=== PATIENT | male | born 2000 | race Caucasian/White ===

== ENCOUNTER 2020-08-14 18:55 | Emergency (ER) | payer OTHER ==
[~2020-08-14] VITALS: Ht 180.3 cm; Wt 73.9 kg
[2020-08-14] MEDS ORDERED: FOCALIN10 MG PO (19:07)
[2020-08-14] MEDS ORDERED: SERTRALINE HCL100 MG PO (19:08)
[2020-08-14] MEDS ORDERED: ONZETRA XSAIL11 MG PO (19:08)
[2020-08-14 19:29] LABS: ABSOLUTE EOSINOPHILS 0.2 thou/uL (0.0-0.7); ABSOLUTE LYMPHOCYTES 2.2 thou/uL (0.8-5.3); ABSOLUTE MONOCYTES 0.5 thou/uL (0.0-1.2); ABSOLUTE NEUTROPHILS 4.6 thou/uL (1.6-8.1); BASOPHILS 0.6 %; EOSINOPHILS 2.5 %; HEMATOCRIT 44.7 % (42.0-52.0); HEMOGLOBIN 15.5 gm/dL (14.0-18.0); LYMPHOCYTES 29.3 %; MCH 29.5 pg (26.0-34.0); MCHC 34.7 g/dL (28.0-37.0); MCV 85.2 fL (80.0-100.0); MONOCYTES 6.1 %; MPV 8.1 fl. (7.2-11.1); NUCLEATED RBCS 0 /100WBC; PLATELET COUNT* 198 thou/uL (150-400); POLYS 61.5 %; RBC 5.25 mil/uL (4.50-6.00); RDW-CV 12.8 % (10.5-14.5); WBC 7.5 thou/uL (4.0-11.0)
[2020-08-14 19:34] LABS: CALCIUM 9.4 mg/dL (8.5-10.1); CREATININE 0.8 mg/dL (0.6-1.3); POTASSIUM 3.5 mmol/L (3.5-5.1)
[2020-08-14 19:38] LABS: ALBUMIN 4.8 g/dL (3.4-5.0); TOTAL BILIRUBIN 1.5 mg/dL (<0.1-1.0); TOTAL PROTEIN 7.6 g/dL (6.4-8.2)
[2020-08-14 21:46] LABS: URINE BILIRUBIN NEGATIVE (Negative); URINE BLOOD NEGATIVE (Negative); URINE CLARITY CLEAR; URINE COLOR YELLOW; URINE GLUCOSE-RANDOM NEGATIVE (Negative); URINE KETONES TRACE (Negative); URINE LEUKOCYTES-REFLEX NEGATIVE (Negative); URINE NITRITE-REFLEX NEGATIVE (Negative); URINE PROTEIN NEGATIVE (Negative); URINE UROBILINOGEN 0.2 E.U./dl (0.2-1.0)
[2020-08-14 21:54] LABS: AMP/METHAMP Negative (Negative); BARBITURATES Negative (Negative); BENZODIAZEPINES Negative (Negative); COCAINE Negative (Negative); METHADONE Negative (Negative); OPIATES POSITIVE (Negative); PCP Negative (Negative); THC Negative (Negative)
[2020-08-14 22:10] VITALS: BP 118/68
--- NOTE | 2020-08-15 12:47 | EKG ---
[place] [address] ELECTROCARDIOGRAM REPORT Name: SHAYE LOPEZ Room: [facility]#: [id number] Admission: 08/14/20 Attend Phys: Discharge: 08/14/20 Date of : [birth year] Date of Service: 08/14/201910 Report #: [id number] THIS REPORT FOR: //name// [facility] ED Test Date: 2020-08-14 Test Time: 19:11:15 Pat Name: SHAYE LOPEZ Department: Room: Gender: [employer]: [place] : 2000 Requested By: Uma Cano Order Number: [id number] MD: Magdy Harris Measurements Intervals [place] Rate: 65 P: 65 ME: 153 QRS: 68 QRSD: 114 T: 77 QT: 376 QTc: 391 Interpretive Statements Sinus rhythm Borderline intraventricular conduction delay ST elevation suggests acute pericarditis No previous ECG available for comparison Electronically Signed On 08-15-2020 12:47:13 CDT by Magdy Harris [email or web address] <ELECTRONICALLY SIGNED> By: Magdy Harris MD, [facility] 08/15/20 1247 10 10 Magdy Harris MD, FACC /EPI
== END 2020-08-14 22:11 | disposition home or self-care (01) ==
LOC: M.ERS 18:55
PROVIDERS: Personal Emergency Response Attendant
DX: G43.909 Migraine, unspecified, not intractable, without status migrainosus (principal); R11.2 Nausea with vomiting, unspecified; M43.6 Torticollis; R20.0 Anesthesia of skin; I25.2 Old myocardial infarction; Z85.47 Personal history of malignant neoplasm of testis; Z79.899 Other long term (current) drug therapy